=== PATIENT | male | born 1990 | race American Indian/Alaskan Native ===

== ENCOUNTER 2019-04-18 15:34 | Emergency (ER) | payer SELFPAY ==
--- NOTE | 2019-04-18 16:53 | Event Note ---
ED Screening Note Date of service: 04/18/19 Time: 16:50 ED Screening Note: 29 y o male presents with fever, chills and coughing with no apetite and generalized weakness This initial assessment/diagnostic orders/clinical plan/treatment(s) is/are subject to change based on patients health status, clinical progression and re- assessment by fellow clinical providers in the ED. Further treatment and workup at subsequent clinical providers discretion. Patient/guardian urged not to elope from the ED as their condition may be serious if not clinically assessed and managed. Initial orders include: cxr acc eval
--- NOTE | 2019-04-18 17:14 | XRay Report ---
CHEST 2 VIEWS INDICATION / CLINICAL INFORMATION: cough. COMPARISON: None available. FINDINGS: SUPPORT DEVICES: None. HEART / MEDIASTINUM: No significant abnormality. LUNGS / PLEURA: There is small amount of consolidation in the right lower lobe indicating some minima l pneumonia. Lungs and pleural spaces otherwise are clear. No pneumothorax. ADDITIONAL FINDINGS: No significant additional findings. IMPRESSION: 1. Slight right lower lobe pneumonia Signer Name: Arie Laws MD Signed: 04/18/2019 5:10 PM Workstation Name: [id number]
[2019-04-18] MEDS ORDERED: levoFLOXacin 750 MG TAB PO ONE (20:14)
[2019-04-18] MEDS ORDERED: predniSONE 20 MG TAB PO ONE (20:14)
[2019-04-18] MEDS ORDERED: IBUPROFEN 600 MG TAB PO ONE (20:14)
--- NOTE | 2019-04-18 20:20 | Emergency Department Report ---
- General Chief Complaint: Upper Respiratory Infection Stated Complaint: FLU SX/FEVER Source: patient Mode of arrival: Ambulatory Limitations: No Limitations - History of Present Illness Initial Comments: Patient is a 29-year-old -[place] male with no past medical history presents to the ED with complaint of acute onset persistent nasal and sinus congestion, frontal sinus pressure and headache, persistent dry cough, diffuse body aches and pains, subjective fever and chills, diaphoresis and lack of appetite and generalized weakness for the last 4 days. Patient states that the symptoms got worse in the last 12 hours side that is generalized weakness got worse. Patient denies dizziness, sore throat, nausea, vomiting, diarrhea, abdominal pain, chest pain, shortness of breath, syncope, dysuria, urinary frequency and urgency or palpitations. MD Complaint: fever, cough, rhinorrhea, nasal congestion, sinus pain, other (diffuse body aches and pains) -: Sudden, days(s) (4) Severity: severe Severity scale (0 -10): 7 Quality: sharp, aching Consistency: constant Improves With: nothing Worsens With: nothing Associated Symptoms: denies other symptoms, fever, chills, myalgias, diaphoresis, headache, rhinorrhea, nasal congestion, sore throat, cough. denies: chest pain, shortness of breath, abdominal pain, nausea, vomiting, diarrhea, dysuria, rash, confusion, right sweats, weight loss, epistaxis, hoarseness, ear pain Treatments Prior to Arrival: none - Related Data Previous Rx's Medication Instructions Recorded Last Taken Type Benzonatate [Tessalon Perles] 100 mg PO Q8HR #30 capsule 04/18/19 Unknown Rx Ibuprofen [Motrin] 600 mg PO Q8H PRN #24 tablet 04/18/19 Unknown Rx Prednisone [predniSONE 10 mg 10 mg PO .TAPER #21 tab.ds.pk 04/18/19 Unknown Rx (6-Day Pack, 21 Tabs)] levoFLOXacin [Levaquin] 750 mg PO DAILY #7 tablet 04/18/19 Unknown Rx Allergies Allergy/AdvReac Type Severity Reaction Status Date / Time No Known Allergies Allergy Unverified 04/18/19 15:37 ED Review of Systems ROS: Stated complaint: FLU SX/FEVER Other details as noted in HPI Constitutional: chills, fever, malaise, weakness Eyes: denies: eye pain, eye discharge, vision change ENT: congestion. denies: ear pain, throat pain Respiratory: cough. denies: shortness of breath, SOB with exertion, wheezing Cardiovascular: denies: chest pain, palpitations Endocrine: no symptoms reported Gastrointestinal: denies: abdominal pain, nausea, vomiting, diarrhea, constipation, hematochezia Genitourinary: denies: urgency, dysuria, frequency, testicular pain, testicular mass Musculoskeletal: arthralgia, myalgia. denies: back pain, joint swelling Skin: denies: rash, lesions Neurological: headache. denies: weakness, paresthesias Psychiatric: denies: anxiety, depression Hematological/Lymphatic: denies: easy bleeding, easy bruising ED Past Medical Hx - Past Medical History Previous Medical History?: No - Surgical History Past Surgical History?: No - Social History Smoking Status: Current Every Day Smoker - Medications Home Medications: Home Medications Medication Instructions Recorded Confirmed Last Taken Type Benzonatate [Tessalon Perles] 100 mg PO Q8HR #30 capsule 04/18/19 Unknown Rx Ibuprofen [Motrin] 600 mg PO Q8H PRN #24 tablet 04/18/19 Unknown Rx Prednisone [predniSONE 10 mg 10 mg PO .TAPER #21 tab.ds.pk 04/18/19 Unknown Rx (6-Day Pack, 21 Tabs)] levoFLOXacin [Levaquin] 750 mg PO DAILY #7 tablet 04/18/19 Unknown Rx ED Physical Exam - General Limitations: No Limitations General appearance: alert, in no apparent distress - Head Head exam: Present: atraumatic, normocephalic, normal inspection - Eye Eye exam: Present: normal appearance, PERRL, EOMI Pupils: Present: normal accommodation - ENT ENT exam: Present: normal exam, normal orophraynx, mucous membranes moist, TM's normal bilaterally, normal external ear exam - Neck Neck exam: Present: normal inspection, full ROM. Absent: tenderness, meningismus, lymphadenopathy, thyromegaly - Respiratory Respiratory exam: Present: normal lung sounds bilaterally. Absent: respiratory distress, wheezes, rales, chest wall tenderness, accessory muscle use, decreased breath sounds, prolonged expiratory - Cardiovascular Cardiovascular Exam: Present: regular rate, normal rhythm, normal heart sounds. Absent: systolic murmur, diastolic murmur, rubs, gallop - GI/Abdominal GI/Abdominal exam: Present: soft, normal bowel sounds. Absent: tenderness, guarding, hyperactive bowel sounds, hypoactive bowel sounds, organomegaly - Extremities Exam Extremities exam: Present: normal inspection, full ROM, normal capillary refill - Back Exam Back exam: Present: normal inspection, full ROM - Neurological Exam Neurological exam: Present: alert, oriented X3, CN II-XII intact, normal gait, reflexes normal - Psychiatric Psychiatric exam: Present: normal affect, normal mood - Skin Skin exam: Present: warm, dry, intact, normal color. Absent: rash ED Course Vital Signs 04/18/19 16:49 Temperature 99.5 F Pulse Rate 86 Respiratory 18 Rate Blood Pressure 121/72 O2 Sat by Pulse 98 Oximetry ED Medical Decision Making - Radiology Data Radiology results: report reviewed, image reviewed Findings [facility] [address] [place] [address] XRay Report Signed Patient: CAROLINA MCGHEE MR#: [id number] : 1990 Acct:[id number] Age/Sex: 29 / M ADM Date: 04/18/19 Loc: ED Attending Dr: Ordering Physician: BRANDON OLSEN Date of Service: 04/18/19 Procedure(s): XR chest routine 2V Accession Number(s): [id number] cc: BRANDON OLSEN Fluoro Time In Minutes: CHEST 2 VIEWS INDICATION / CLINICAL INFORMATION: cough. COMPARISON: None available. FINDINGS: SUPPORT DEVICES: None. HEART / MEDIASTINUM: No significant abnormality. LUNGS / PLEURA: There is small amount of consolidation in the right lower lobe indicating some minimal pneumonia. Lungs and pleural spaces otherwise are clear. No pneumothorax. ADDITIONAL FINDINGS: No significant additional findings. IMPRESSION: 1. Slight right lower lobe pneumonia Signer Name: Arie Laws MD Signed: 04/18/2019 5:10 PM Workstation Name: [id number] Transcribed By: PRITI Dictated By: Arie Laws MD Electronically Authenticated By: Arie Laws MD Signed Date/Time: 04/18/191709 DD/ 07 TD/TT: - Medical Decision Making This is a 29-year-old male who presented to the ED with nasal and sinus congestion, persistent dry cough diffuse body aches and pains and intermittent fever and chills with generalized weakness and lack of appetite for 4 days. In the ED, patient is alert and oriented 3 and is not in distress with normal vital signs. Chest x-ray shows a slight right lower lobe pneumonia. Patient was treated in the ED with prednisone, ibuprofen and initial oral Levaquin 1. Patient was discharged home on antibiotics and cough medications and was advised to follow-up with his primary care physician in 7-10 days for reevaluation. Patient was advised to return to the ED immediately if symptoms get worse. - Differential Diagnosis Pneumonia; URI; Flu; Bronchitis Critical care attestation.: If time is entered above; I have spent that time in minutes in the direct care of this critically ill patient, excluding procedure time. ED Disposition Clinical Impression: Acute upper respiratory infection Community acquired pneumonia Qualifiers: Laterality: right Lung location: lower lobe of lung Qualified Code(s): J18.9 - Pneumonia, unspecified organism Disposition: TO HOME OR SELFCARE Is pt being admited?: No Does the pt Need Aspirin: No Condition: Stable Instructions: Bacterial Pneumonia (ED), Community-acquired Pneumonia (ED), Upper Respiratory Infection (ED) Additional Instructions: Take medications with food, drink plenty of fluids and follow-up with your primary care physician in 7-10 days for reevaluation. Return to the ED immediately if symptoms get worse. Prescriptions: levoFLOXacin [Levaquin] 750 mg PO DAILY #7 tablet Ibuprofen [Motrin] 600 mg PO Q8H PRN #24 tablet PRN Reason: Pain Prednisone [predniSONE 10 mg (6-Day Pack, 21 Tabs)] 10 mg PO .TAPER #21 tab.ds.pk Benzonatate [Tessalon Perles] 100 mg PO Q8HR #30 capsule Referrals: PADMINI DWYER MD [Staff Physician] - 7-10 days Forms: Work/School Release Form(ED) Time of Disposition: 20:21 Print Language: KOREAN
[2019-04-18 20:33] VITALS: BP 120/74
== END 2019-04-18 20:33 | disposition home or self-care (01) ==
LOC: ED 15:34
DX: J18.8 Other pneumonia, unspecified organism (principal); J06.9 Acute upper respiratory infection, unspecified; F17.200 Nicotine dependence, unspecified, uncomplicated; Z79.899 Other long term (current) drug therapy
CPT/HCPCS: 71046; 99283; J7512